=== PATIENT | female | born 1955 | race Hispanic/Latino ===

== ENCOUNTER 2016-12-07 12:34 | Observation (INO) | payer MEDICARE, OTHER ==
[2016-12-07 12:34] VITALS: BMI 27.9
[2016-12-07] MEDS ORDERED: Aspirin 325 mg EC Tablets PO STA (13:29)
--- NOTE | 2016-12-07 14:03 | RAD ---
PROCEDURE: CHEST RADIOGRAPH, 1 VIEW HISTORY: Left chest pain COMPARISON: None available. FINDINGS: LUNGS: Poor inspiration with low lung volumes, mild crowded bronchovascular markings and mild bibasilar atelectasis PLEURA: No pneumothorax or pleural fluid seen. CARDIOVASCULAR: Normal. OSSEOUS STRUCTURES: No significant abnormalities. VISUALIZED UPPER ABDOMEN: Normal. OTHER FINDINGS: None. IMPRESSION: Poor inspiration with low lung volumes, mild crowded bronchovascular markings and mild bibasilar atelectasis
[2016-12-07 14:21] LABS: BASO % 0.3 % (0.0-2.0); EOS % 0.2 % (0.0-4.0); HEMATOCRIT 44.4 % (34.0-47.0); LYMPH # 2.2 K/uL (1.0-4.3); LYMPH % 23.9 % (20.0-40.0); MEAN CORPUSCULAR HEMOGLOBIN 26.8 pg (27.0-31.0); MEAN CORPUSCULAR HGB CONC 32.3 g/dL (33.0-37.0); MEAN PLATELET VOLUME 9.1 fL (7.2-11.7); MONO # 0.6 K/uL (0.0-0.8); MONO % 6.7 % (0.0-10.0); RED CELL DISTRIBUTION WIDTH 15.2 % (11.5-14.5); WHITE BLOOD COUNT 9.4 K/uL (4.8-10.8)
[2016-12-07 14:28] LABS: PARTIAL THROMBOPLASTIN TIME 24 SECONDS (21-34)
--- NOTE | 2016-12-07 14:34 | C.PDOC ---
Time Seen by Provider: 12/07/16 13:17 Chief Complaint (Nursing): Chest Pain History Per: Patient Onset/Duration Of Symptoms: Days (2), Waxing/Waning Current Symptoms Are (Timing): Still Present Context: Other (Emotional stress?) Severity: Moderate Quality: "Pain" Associated Symptoms: Dyspnea Modifying Factors: Other Indicated Below Alleviating Factors: None Additional History Per: Prior Records Past Medical History Reviewed: Historical Data, Nursing Documentation, Vital Signs Vital Signs: Last Vital Signs Temp 98.4 F 12/07/16 13:00 Pulse 105 H 12/07/16 13:00 Resp 19 12/07/16 13:00 BP 127/90 12/07/16 13:00 Pulse Ox 98 12/07/16 14:34 - Medical History PMH: Anxiety, Depression, Diabetes, HTN, Hypercholesterolemia, Chronic Pain ( back pain) Surgical History: No Surg Hx Family History: States: Unknown Family Hx - Social History Hx Tobacco Use: No Hx Alcohol Use: No Hx Substance Use: No - Immunization History Hx Influenza Vaccination: Yes Hx Pneumococcal Vaccination: Yes Review Of Systems Except As Marked, All Systems Reviewed And Found Negative. Constitutional: Negative for: Fever, Weakness Cardiovascular: Positive for: Chest Pain Respiratory: Negative for: Hemoptysis Gastrointestinal: Negative for: Nausea, Vomiting, Abdominal Pain Genitourinary: Negative for: Dysuria Musculoskeletal: Positive for: Back Pain. Negative for: Neck Pain, Leg Pain Skin: Negative for: Rash Neurological: Negative for: Weakness, Numbness, Seizures, Altered Mental Status Physical Exam - Physical Exam Appears: Non-toxic, No Acute Distress Skin: Normal Color, Warm, Dry, No Rash Head: Atraumatic, Normacephalic Eye(s): bilateral: PERRL, EOMI Neck: Normal ROM, Supple Chest: Symmetrical, No Deformity Cardiovascular: Rhythm Regular Respiratory: Normal Breath Sounds, No Accessory Muscle Use Gastrointestinal/Abdominal: Soft, No Tenderness Back: No CVA Tenderness Extremity: Normal ROM, No Calf Tenderness Neurological/Psych: Oriented x3, Normal Motor, Normal Sensation ED Course And Treatment - Laboratory Results Result Diagrams: 12/07/16 14:10 12/07/16 14:45 Lab Interpretation: No Acute Changes ECG: Interpreted By Me, Viewed By Me ECG Rhythm: Sinus Tachycardia, Nonspecific Changes Rate From EC O2 Sat by Pulse Oximetry: 98 Pulse Ox Interpretation: Normal - Radiology CXR: Viewed By Me, Read By Radiologist CXR Interpretation: Yes: No Acute Disease Progress - Interventions Interventions:: Observation, Oxygen - Medications Administered Oral: Aspirin - Data Reviewed Data Reviewed: Lab, Diagnostic imaging, EKG, Old records - Patient Status Patient status: Partially improved - Continuity of Care Discussed patient case with:: Patient, Family-HIPPA compliant, ED Nurse, Covering for PMD Disposition Discussed With : Jarocho Neff Comment: He accepted pt on hospitalist service. Doctor Will See Patient In The: Hospital Counseled Patient/Family Regarding: Studies Performed, Diagnosis - Disposition Disposition: HOSPITALIZED Disposition Time: 15:58 Condition: FAIR - Clinical Impression Clinical Impression: Chest pain
[2016-12-07 15:18] LABS: CHLORIDE 98 mmol/L (98-107)
[2016-12-07 15:19] LABS: POTASSIUM 3.7 mmol/L (3.6-5.2); SODIUM 139 mmol/L (132-148)
[2016-12-07 15:21] LABS: GFR AFRICAN-AMERICAN > 60
[2016-12-07 15:22] LABS: ALB/GLOB RATIO 1.5 (1.0-2.1); ALKALINE PHOSPHATASE 85 U/L (38-126); ALT/SGPT 38 U/L (9-52); AST/SGOT 27 U/L (14-36); BILIRUBIN,TOTAL 0.5 mg/dL (0.2-1.3); BLOOD UREA NITROGEN 8 mg/dL (7-17); CALCIUM 9.2 mg/dl (8.6-10.4); CARBON DIOXIDE 33 mmol/L (22-30); GLUCOSE,RANDOM 96 mg/dL (65-105); TOTAL PROTEIN 6.9 g/dL (6.3-8.3)
--- NOTE | 2016-12-07 16:22 | CP.PCM.PN ---
Subjective - Date & Time of Evaluation Date of Evaluation: 12/07/16 Objective - Vital Signs/Intake and Output Vital Signs (last 24 hours): Temp Pulse Resp BP Pulse Ox 98.4 F 105 H 19 127/90 98 12/07/16 13:00 12/07/16 13:00 12/07/16 13:00 12/07/16 13:00 12/07/16 15:58 - Labs Labs: PT 11.1 SECONDS (9.7-12.2) 12/07/16 14:10 INR 1.0 12/07/16 14:10 APTT 24 SECONDS (21-34) 12/07/16 14:10
--- NOTE | 2016-12-07 16:31 | CP.PCM.HP ---
<Wyatt Carmen - Last Filed: 12/07/16 16:47> History of Present Illness - History of Present Illness History of Present Illness: cc: "chest pain" HPI: Patient is a 61 year old female with PMHx of diabetes, hypertension, hyperlipidemia, anxiety disorder and depression presenting to the ED complaining of chest pain that started 3 days ago. She says the chest pain has been getting progressively worse and it reached the point where she could not tolerate it, so she decided to go to the hospital. She says the pain is intermittent, lasting about 5-10 minutes, self resolves without any intervention , sharp stabbing starting from her left chest , radiating around her left breast and to her back. She says she has had chest pain in the past, and has attributed it to her anxiety, but this was more severe. She follows with Dr. Silas Crocker, last saw him sometime last year. She took a baby aspirin today with no relief. Patient also stated that as of November 23, she was evicted from her apartment and that it has caused a significant stress on her. PMD: Dr. Benson PMHx: As stated above PSHx: denies Allergies: Seroquel (rash) Fam hx: mother had MT in 40s, brother had MT (unknown Present on Admission - Present on Admission Any Indicators Present on Admission: No Review of Systems - Constitutional Constitutional: absent: Chills, Weight Loss, Weakness - EENT Eyes: absent: Blurred Vision, Change in Vision Nose/Mouth/Throat: absent: Nasal Congestion, Nasal Discharge - Cardiovascular Cardiovascular: Chest Pain, Palpitations. absent: Claudication, Irregular Heart Rhythm, Leg Edema, Pedal Edema - Musculoskeletal Musculoskeletal: absent: Back Pain, Neck Pain, Numbness - Integumentary Integumentary: absent: Skin Pain, Sores, Striae, Swelling - Neurological Neurological: absent: Abnormal Movements, Tremor, Weakness - Psychiatric Psychiatric: absent: Anxiety, Panic Attacks, Suicidal Ideation - Endocrine Endocrine: Palpitations. absent: Fatigue Past Patient History - Infectious Disease Hx of Infectious Diseases: None - Past Social History Smoking Status: Never Smoked - CARDIAC Hx Hypercholesterolemia: Yes Hx Hypertension: Yes - ENDOCRINE/METABOLIC Hx Diabetes Mellitus Type 2: Yes - PSYCHIATRIC Hx Anxiety: Yes Hx Depression: Yes Hx Substance Use: No Meds Allergies/Adverse Reactions: Allergies Allergy/AdvReac Type Severity Reaction Status Date / Time No Known Allergies Allergy Verified 12/07/16 12:46 Physical Exam - Constitutional Appears: Non-toxic, No Acute Distress - Head Exam Head Exam: ATRAUMATIC, NORMAL INSPECTION, NORMOCEPHALIC - Eye Exam Pupil Exam: NORMAL ACCOMODATION, PERRL - ENT Exam ENT Exam: Mucous Membranes Moist - Respiratory Exam Respiratory Exam: Clear to Auscultation Bilateral, NORMAL BREATHING PATTERN. absent: Prolonged Expiratory Phase, Rales, Rhonchi, Wheezes - Cardiovascular Exam Cardiovascular Exam: REGULAR RHYTHM, +S1, +S2 - GI/Abdominal Exam GI & Abdominal Exam: Normal Bowel Sounds, Soft. absent: Firm, Guarding, Hernia , Hyperactive Bowel Sounds, Tenderness - Extremities Exam Extremities exam: Positive for: normal capillary refill, pedal pulses present - Neurological Exam Neurological exam: Alert, CN II-XII Intact, Oriented x3 - Psychiatric Exam Psychiatric exam: Normal Affect, Normal Mood - Skin Skin Exam: Dry, Intact, Normal Color, Warm Results - Vital Signs Recent Vital Signs: Last Vital Signs Temp 98.4 F 12/07/16 13:00 Pulse 105 H 12/07/16 13:00 Resp 19 12/07/16 13:00 BP 127/90 12/07/16 13:00 Pulse Ox 98 12/07/16 15:58 - Labs Result Diagrams: 12/07/16 14:10 12/07/16 14:45 Assessment & Plan (1) Chest pain Status: Acute Comment: Consult cardio- Dr. Crocker. AV negative x 1. EKG: Sinus tach- 109 bpm, moderate criteria for LVH, nonspecific t wave abnormalities. f/u ROMIs x 2. f/u EKGs x2. f/u HgbA1c, TSH, FLP (2) Hypertension Status: Acute Comment: Continue Losartan 50mg PO Daily. Continue HCTZ 12.mg PO Daily. Continue Bystolic 10mg PO Daily (3) Diabetes Status: Acute Comment: accuchecks. RISS. Heart healthy, Mod CHO diet (4) Hyperlipidemia Status: Acute Comment: Continue Crestor 10mg PO HS (5) Anxiety Status: Acute Comment: Continue Xanax 1mg PO Q12h PRN (6) Depression Status: Acute Comment: Continue Abilify 5mg PO HS (7) Herniated intervertebral disc Status: Acute Comment: Continue Percocet 5/325mg PO Q6h PRN for pain (8) Prophylactic measure Status: Acute Comment: Protonix 40mg PO Daily. SCDs. Heparin 5000U SC Q8h <Jarocho Neff - Last Filed: 12/07/16 18:13> Results - Vital Signs Recent Vital Signs: Last Vital Signs Temp 98.4 F 12/07/16 13:00 Pulse 93 H 12/07/16 16:45 Resp 23 12/07/16 16:45 BP 140/92 H 12/07/16 16:45 Pulse Ox 98 12/07/16 16:45 - Labs Result Diagrams: 12/07/16 14:10 12/07/16 14:45 Attending/Attestation - Attestation I have personally seen and examined this patient.: Yes I have fully participated in the care of the patient.: Yes I have reviewed all pertinent clinical information: Yes Notes (Text): 12/07/16 18:11 Medical Attending: Patient was seen and examined by me. Agree with the above note by the resident. The patient did seem to have chest pain with palpation of the epigastric and substernal area. It seemed reproducible on exam. We will check additional cardiac enzymes as well as an echo. Will also let her recruit instructor aware as well thank you Jarocho Neff
[2016-12-07] MEDS ORDERED: Oxycodone/Acetaminophen 5/325 mg Tab PO PRN (17:04)
[2016-12-07] MEDS: LIPASE/PROTEASE/AMYLASE 4,200 U ECC PO SCH (19:03)
[2016-12-07] MEDS: (Novolin R) Insulin Human Regular 100 units/ml vial SC SCH (22:12)
[2016-12-08 02:58] LABS: CHLORIDE 99 mmol/L (98-107)
[2016-12-08 02:59] LABS: POTASSIUM 3.4 mmol/L (3.6-5.2); SODIUM 138 mmol/L (132-148)
[2016-12-08 03:01] LABS: ALB/GLOB RATIO 1.3 (1.0-2.1); AST/SGOT 22 U/L (14-36); BILIRUBIN,TOTAL 0.7 mg/dL (0.2-1.3); BLOOD UREA NITROGEN 10 mg/dL (7-17); CARBON DIOXIDE 32 mmol/L (22-30); CHOLESTEROL 149 mg/dL (0-199); GFR AFRICAN-AMERICAN > 60
[2016-12-08 03:02] LABS: ALKALINE PHOSPHATASE 59 U/L (38-126); ALT/SGPT 25 U/L (9-52); CALCIUM 8.7 mg/dl (8.6-10.4); GLUCOSE,RANDOM 95 mg/dL (65-105)
[2016-12-08 03:03] LABS: BASO % 0.3 % (0.0-2.0); EOS # 0.1 K/uL (0.0-0.7); EOS % 0.8 % (0.0-4.0); HEMATOCRIT 40.6 % (34.0-47.0); LYMPH # 3.5 K/uL (1.0-4.3); LYMPH % 51.3 % (20.0-40.0); MEAN CELL VOLUME 82.4 fL (81.0-99.0); MEAN CORPUSCULAR HEMOGLOBIN 26.9 pg (27.0-31.0); MEAN CORPUSCULAR HGB CONC 32.7 g/dL (33.0-37.0); MEAN PLATELET VOLUME 9.2 fL (7.2-11.7); MONO # 0.5 K/uL (0.0-0.8); MONO % 7.6 % (0.0-10.0); WHITE BLOOD COUNT 6.9 K/uL (4.8-10.8)
[2016-12-08 03:31] LABS: THYROID STIMULATING HORMONE 1.99 mIU/L (0.46-4.68)
[2016-12-08] MEDS ORDERED: Potassium Chloride 20 mEq ER Tab PO STA (04:53)
[2016-12-08] MEDS: (Novolin R) Insulin Human Regular 100 units/ml vial SC SCH ×4 (08:17→22:12)
[2016-12-08] MEDS ORDERED: Midazolam 2 MG/2 ML VIAL ONE (10:52)
--- NOTE | 2016-12-08 11:59 | CP.PCM.CON ---
History of Present Illness - History of Present Illness History of Present Illness: I was asked to see patient by Dr. Neff. Patient is a 61 year old female with PMH HTN, hypercholesterolemia, DM who presents with unstable angina. The patient describes a pressure like sensation on the middle of the chest which was associated with radiation and dyspnea. Symptoms began 3 days prior to her visit, and have become progressive. The patient states her pain is substernal. She presented to the hospital due to the crescendo nature of her symptoms. Review of Systems - Constitutional Constitutional: absent: As Per HPI, Anorexia, Chills, Daytime Sleepiness, Excessive Sweating, Fatigue, Fever, Frequent Falls, Headache, Increased Appetite , Lethargy, Malaise, Night Sweats, Snoring, Sleep Apnea, Weight Gain, Weight Loss, Weakness, Other - EENT Eyes: absent: As Per HPI, Blind Spots, Blurred Vision, Change in Vision, Decreased Night Vision, Diplopia, Discharge, Dry Eye, Exophthalmos, Floaters, Irritation, Itchy Eyes, Loss of Peripheral Vision, Pain, Photophobia, Requires Corrective Lenses, Sees Flashes, Spots in Vision, Tunnel Vision, Other Visual Disturbances, Loss of Vision, Other Ears: absent: As Per HPI, Decreased Hearing, Ear Discharge, Ear Pain, Tinnitus, Abnormal Hearing, Disequilibrium, Dizziness, Other Nose/Mouth/Throat: absent: As Per HPI, Epistaxis, Nasal Congestion, Nasal Discharge, Nasal Obstruction, Nasal Trauma, Nose Pain, Post Nasal Drip, Sinus Pain, Sinus Pressure, Bleeding Gums, Change in Voice, Dental Pain, Dry Mouth, Dysphagia, Halitosis, Hoarsness, Lip Swelling, Mouth Lesions, Mouth Pain, Odynophagia, Sore Throat, Throat Swelling, Tongue Swelling, Facial Pain, Neck Pain, Neck Mass, Other - Cardiovascular Cardiovascular: Chest Pain, Dyspnea - Respiratory Respiratory: Dyspnea - Gastrointestinal Gastrointestinal: absent: As Per HPI, Abdominal Pain, Belching, Bloating, Change in Bowel Habits, Change in Stool Character, Coffee Ground Emesis, Constipation, Cramping, Diarrhea, Dyspepsia, Dysphagia, Early Satiety, Excessive Flatus, Fecal Incontinence, Heartburn, Hematemesis, Hematochezia, Loose Stools, Melena, Nausea, Odynophagia, Temesmus, Vomiting, Other - Genitourinary Genitourinary: absent: As Per HPI, Change in Urinary Stream, Difficulty Urinating, Dysuria, Flank Pain, Hematuria, Pyuria, Nocturia, Urinary Incontinence, Urinary Frequency, Urinary Hesitance, Urinary Urgency, Voiding Freq/Small Amts, Freq UTI, Hx Renal/Bladder Calculi, Hx /Renal Surgery, Bladder Distension, Other - Musculoskeletal Musculoskeletal: absent: As Per HPI, Abnormal Gait, Arthralgias, Atrophy, Back Pain, Deformity, Joint Swelling, Limited Range of Motion, Loss of Height, Muscle Cramps, Muscle Weakness, Myalgias, Neck Pain, Numbness, Radiating Pain into Limb, Stiffness, Tingling, Other - Integumentary Integumentary: absent: As Per HPI, Acne, Alopecia, Bleeding Lesions, Change in Hair, Change in Nails, Change in Pigmentation, Changing Lesions, Dry Skin, Erythema, Furuncle, Hirsutism, Lesions, New Lesions, Non-Healing Lesions, Photosensitivity, Pruritus, Rash, Skin Pain, Skin Ulcer, Sores, Striae, Swelling , Unusual Bruising, Wounds, Jaundice, Other - Neurological Neurological: absent: As Per HPI, Abnormal Gait, Abnormal Hearing, Abnormal Movements, Abnormal Speech, Behavioral Changes, Burning Sensations, Confusion, Convulsions, Disequilibrium, Dizziness, Numbness, Focal Weakness, Frequent Falls , Headaches, Lack of Coordination, Loss of Vision, Memory Loss, Paresthesias, Radicular Pain, Restless Legs, Sensory Deficit, Syncope, Tingling, Tremor, Vertigo, Weakness, Other Visual Disturbances, Other - Psychiatric Psychiatric: absent: As Per HPI, Abnormal Sleep Pattern, Anhedonia, Anxiety, Auditory Hallucinations, Behavioral Changes, Change in Appetite, Change in Libido, Confusion, Depression, Difficulty Concentrating, Hallucinations, Homicidal Ideation, Hopelessness, Irritability, Memory Loss, Mood Swings, Panic Attacks, Paranoia, Suicidal Ideation, Visual Hallucinations, Tactile Hallucinations, Other - Endocrine Endocrine: absent: As Per HPI, Change in Body Appearance, Change in Libido, Cold Intolorance, Deepening of Voice, Excessive Sweating, Fatigue, Flushing, Heat Intolorance, Increase in Ring/Shoe/Hat Size, Palpitations, Polydipsia, Polyphagia, Polyuria, Other - Hematologic/Lymphatic Hematologic: absent: As Per HPI, Easy Bleeding, Easy Bruising, Lymphadenopathy, Other Past Patient History - Infectious Disease Hx of Infectious Diseases: None - Past Medical History & Family History Past Medical History?: Yes - Past Social History Smoking Status: Never Smoked - CARDIAC Hx Hypercholesterolemia: Yes Hx Hypertension: Yes - PULMONARY Hx Respiratory Disorders: No - NEUROLOGICAL Hx Neurological Disorder: Yes HX Cerebrovascular Accident: Yes - HEENT Hx HEENT Problems: No - RENAL Hx Chronic Kidney Disease: No - ENDOCRINE/METABOLIC Hx Diabetes Mellitus Type 2: Yes - HEMATOLOGICAL/ONCOLOGICAL Hx Blood Disorders: No - INTEGUMENTARY Hx Dermatological Problems: No - MUSCULOSKELETAL/RHEUMATOLOGICAL Hx Musculoskeletal Disorders: No Hx Falls: No - GASTROINTESTINAL Hx Gastrointestinal Disorders: No - GENITOURINARY/GYNECOLOGICAL Hx Genitourinary Disorders: No - PSYCHIATRIC Hx Anxiety: Yes Hx Depression: Yes Hx Substance Use: No - SURGICAL HISTORY Hx Section: Yes - ANESTHESIA Hx Anesthesia: Yes Hx Anesthesia Reactions: No Hx Malignant Hyperthermia: No Meds Allergies/Adverse Reactions: Allergies Allergy/AdvReac Type Severity Reaction Status Date / Time quetiapine [From Seroquel] Allergy RASH Verified 12/08/16 10:08 - Medications Medications: Current Medications Alprazolam (Xanax) 1 mg PO Q12H PRN PRN Reason: Anxiety Last Admin: 12/07/16 21:35 Dose: 1 mg Aripiprazole (Abilify) 5 mg PO HS [facility] Last Admin: 12/07/16 21:33 Dose: 5 mg Heparin Sodium (Porcine) (Heparin) 5,000 units SC Q8 [facility] Last Admin: 12/08/16 05:26 Dose: 5,000 units Hydrochlorothiazide (Microzide) 12.5 mg PO DAILY [facility] Insulin Human Regular (Novolin R) 0 unit SC ACHS [facility] PRN Reason: Protocol Last Admin: 12/08/16 08:17 Dose: Not Given Losartan Potassium (Cozaar) 50 mg PO DAILY [facility] Nebivolol (Bystolic) 10 mg PO DAILY [facility] Oxycodone/Acetaminophen (Percocet 5/325 Mg Tab) 1 tab PO Q6H PRN PRN Reason: Pain, severe (8-10) Stop: 12/10/16 17:05 Last Admin: 12/07/16 20:55 Dose: 1 tab Pantoprazole Sodium (Protonix Ec Tab) 40 mg PO DAILY [facility] Rosuvastatin Calcium (Crestor) 10 mg PO HS [facility] Last Admin: 12/07/16 21:34 Dose: 10 mg Physical Exam - Constitutional Appears: Non-toxic - Head Exam Head Exam: NORMAL INSPECTION - Eye Exam Eye Exam: Normal appearance - ENT Exam ENT Exam: Mucous Membranes Moist - Neck Exam Neck exam: Positive for: Full Rom - Respiratory Exam Respiratory Exam: NORMAL BREATHING PATTERN - Cardiovascular Exam Cardiovascular Exam: REGULAR RHYTHM - GI/Abdominal Exam GI & Abdominal Exam: Normal Bowel Sounds - Rectal Exam Rectal Exam: Deferred - Extremities Exam Extremities exam: Positive for: full ROM - Back Exam Back exam: NORMAL INSPECTION - Neurological Exam Neurological exam: Alert, Oriented x3 - Psychiatric Exam Psychiatric exam: Normal Affect - Skin Skin Exam: Normal Color Results - Vital Signs Recent Vital Signs: Last Vital Signs Temp 97.6 F 12/08/16 08:20 Pulse 75 12/08/16 08:20 Resp 20 12/08/16 08:20 BP 119/71 12/08/16 08:20 Pulse Ox 94 L 12/08/16 08:20 - Labs Result Diagrams: 12/08/16 02:46 12/08/16 02:46 Labs: Laboratory Results - last 24 hr 12/07/16 12/07/16 12/07/16 18:08 21:40 22:01 WBC RBC Hgb Hct MCV MCH MCHC RDW Plt Count MPV Neut % (Auto) Lymph % (Auto) [place] % (Auto) Eos % (Auto) Baso % (Auto) Neut # Lymph # [place] # Eos # Baso # Sodium Potassium Chloride Carbon Dioxide Anion Gap BUN Creatinine Est GFR ( Amer) Est GFR (Non-Af Amer) POC Glucose (mg/dL) 120 H 88 Random Glucose Hemoglobin A1c Calcium Total Bilirubin AST ALT Alkaline Phosphatase Total Creatine Kinase 43 CK-MB (Mass) 0.52 Troponin I, Quant < 0.0120 Total Protein Albumin Globulin Albumin/Globulin Ratio Triglycerides Cholesterol LDL Cholesterol Direct HDL Cholesterol TSH 3rd Generation 12/08/16 12/08/16 12/08/16 02:46 02:46 02:46 WBC 6.9 RBC 4.92 Hgb 13.3 Hct 40.6 MCV 82.4 MCH 26.9 L MCHC 32.7 L RDW 15.0 H Plt Count 134 MPV 9.2 Neut % (Auto) 40.0 L Lymph % (Auto) 51.3 H [place] % (Auto) 7.6 Eos % (Auto) 0.8 Baso % (Auto) 0.3 Neut # 2.7 Lymph # 3.5 [place] # 0.5 Eos # 0.1 Baso # 0.0 Sodium 138 Potassium 3.4 L Chloride 99 Carbon Dioxide 32 H Anion Gap 10 BUN 10 Creatinine 0.6 L Est GFR ( Amer) > 60 Est GFR (Non-Af Amer) > 60 POC Glucose (mg/dL) Random Glucose 95 Hemoglobin A1c 6.6 H Calcium 8.7 Total Bilirubin 0.7 AST 22 ALT 25 Alkaline Phosphatase 59 Total Creatine Kinase 40 CK-MB (Mass) 0.49 Troponin I, Quant < 0.0120 Total Protein 6.0 L Albumin 3.5 Globulin 2.6 Albumin/Globulin Ratio 1.3 Triglycerides 188 H Cholesterol 149 LDL Cholesterol Direct 58 HDL Cholesterol 66 TSH 3rd Generation 1.99 12/08/16 06:34 WBC RBC Hgb Hct MCV MCH MCHC RDW Plt Count MPV Neut % (Auto) Lymph % (Auto) [place] % (Auto) Eos % (Auto) Baso % (Auto) Neut # Lymph # [place] # Eos # Baso # Sodium Potassium Chloride Carbon Dioxide Anion Gap BUN Creatinine Est GFR ( Amer) Est GFR (Non-Af Amer) POC Glucose (mg/dL) 112 H Random Glucose Hemoglobin A1c Calcium Total Bilirubin AST ALT Alkaline Phosphatase Total Creatine Kinase CK-MB (Mass) Troponin I, Quant Total Protein Albumin Globulin Albumin/Globulin Ratio Triglycerides Cholesterol LDL Cholesterol Direct HDL Cholesterol TSH 3rd Generation - EKG Data EKG Interpreted by: Myself EKG shows normal: Sinus rhythm Assessment & Plan (1) Unstable angina Assessment and Plan: patient has signficant risk factors for CAD. will schedule cardiac cath. I discussed risks and benefits with the patient. Status: Acute (2) Diabetes Assessment and Plan: risk factor for CAD Status: Acute (3) Hyperlipidemia Assessment and Plan: recommend statin therapy Status: Acute (4) Hypertension Assessment and Plan: blood pressure control Status: Acute
[2016-12-08] MEDS ORDERED: Sodium Chloride 0.9% 500 ML IV SCH (12:04)
--- NOTE | 2016-12-08 12:04 | CP.PCM.PN ---
Subjective - Date & Time of Evaluation Date of Evaluation: 12/08/16 Time of Evaluation: 12:00 - Subjective Subjective: cardiac cath performed. No signifcant CAD. Normal left ventricular function. Patient is stable for discharge from a cardiac standpoint. Objective - Vital Signs/Intake and Output Vital Signs (last 24 hours): Temp Pulse Resp BP Pulse Ox 97.6 F 75 20 119/71 94 L 12/08/16 08:20 12/08/16 08:20 12/08/16 08:20 12/08/16 08:20 12/08/16 08:20 Intake and Output: 12/08/16 12/08/16 06:59 18:59 Intake Total 110 Balance 110 - Medications Medications: Current Medications Alprazolam (Xanax) 1 mg PO Q12H PRN PRN Reason: Anxiety Last Admin: 12/07/16 21:35 Dose: 1 mg Aripiprazole (Abilify) 5 mg PO HS [facility] Last Admin: 12/07/16 21:33 Dose: 5 mg Heparin Sodium (Porcine) (Heparin) 5,000 units SC Q8 [facility] Last Admin: 12/08/16 05:26 Dose: 5,000 units Hydrochlorothiazide (Microzide) 12.5 mg PO DAILY [facility] Insulin Human Regular (Novolin R) 0 unit SC ACHS [facility] PRN Reason: Protocol Last Admin: 12/08/16 08:17 Dose: Not Given Losartan Potassium (Cozaar) 50 mg PO DAILY [facility] Nebivolol (Bystolic) 10 mg PO DAILY [facility] Oxycodone/Acetaminophen (Percocet 5/325 Mg Tab) 1 tab PO Q6H PRN PRN Reason: Pain, severe (8-10) Stop: 12/10/16 17:05 Last Admin: 12/07/16 20:55 Dose: 1 tab Pantoprazole Sodium (Protonix Ec Tab) 40 mg PO DAILY [facility] Rosuvastatin Calcium (Crestor) 10 mg PO HS [facility] Last Admin: 12/07/16 21:34 Dose: 10 mg - Labs Labs: 12/08/16 02:46 12/08/16 02:46 PT 11.1 SECONDS (9.7-12.2) 12/07/16 14:10 INR 1.0 12/07/16 14:10 APTT 24 SECONDS (21-34) 12/07/16 14:10 Assessment and Plan (1) Unstable angina Status: Acute (2) Diabetes Status: Acute (3) Hyperlipidemia Status: Acute (4) Hypertension Status: Acute
[2016-12-08] MEDS: LIPASE/PROTEASE/AMYLASE 4,200 U ECC PO SCH ×3 (12:29→19:08)
[2016-12-08 12:44] VITALS: O2SAT 97
[2016-12-08] MEDS: Pantoprazole 40 mg EC Tab PO SCH (13:10)
--- NOTE | 2016-12-08 13:23 | CARDCATH ---
PROCEDURE DATE: 12/08/2016 PERFORMING PHYSICIAN: Silas Crocker MD PROCEDURE PERFORMED: Left heart catheterization, coronary angiography, left ventriculography. INDICATIONS: Unstable angina. COMPLICATIONS: None. HISTORY: The patient is a 61-year-old female with a past medical history of hypertension, hyperchole sterolemia, and diabetes mellitus who presents with substernal chest pressure. Symptoms were intermi ttent and progressive. She presented to [facility] for further management. Due to the crescend o nature of her symptoms, cardiac catheterization was performed. DESCRIPTION OF PROCEDURE: Informed consent was obtained and the right groin was anesthetized with 2% lidocaine solution. Coronary angiography and left ventriculography were then performed. All cathet ers were then removed. Manual pressure was applied to achieve hemostasis. FINDINGS: HEMODYNAMICS: There is no gradient across the aortic valve and left ventricular end-diastolic pressu re is normal. CORONARIES: LEFT MAIN: Normal. LEFT ANTERIOR DESCENDING ARTERY: 20% stenosis proximally. The distal vessel is small in caliber. LEFT CIRCUMFLEX ARTERY: No significant atherosclerosis. RIGHT CORONARY ARTERY: Arises from the right sinus of Valsalva. This is a left dominant circulation . This is a very small caliber vessel with no significant atherosclerosis. LEFT VENTRICLE: Normal left ventricular systolic function. Left ventricular ejection fraction is 55 %. There is no mitral regurgitation or aortic stenosis. CONCLUSIONS: Small caliber distal left anterior descending artery and right coronary artery, otherwi se no significant obstructive coronary disease, normal left ventricular function. PLAN: Medical therapy. Silas Crocker MD cc: [id number] TT: 12/08/2016 13:23:33 tn
--- NOTE | 2016-12-08 16:58 | CARD ---
APPROVED REPORT EXAM: Two-dimensional and M-mode echocardiogram with Doppler and color Doppler. Other Information Quality : AverageRhythm : NSR INDICATION Chest Pain M-Mode DIMENSIONS RVDd1.11 (2.1-3.2cm)Left Atrium (MM)3.57 (2.5-4.0cm) IVSd0.62 (0.7-1.1cm)Aortic Root2.60 (2.2-3.7cm) LVDd4.58 (4.0-5.6cm)Aortic Cusp Exc.1.80 (1.5-2.0cm) PWd1.15 (0.7-1.1cm)FS (%) 36 % LVDs2.95 (2.0-3.8cm)LVEF (%)65 (>50%) Aortic Valve AoV Peak Azvbckhz170.6cm/Isidro Peak GR.7mmHg Mitral Valve MV E Twfuykds06.5cm/sMV A Pziqkons89.8cm/sE/A ratio0.7 TDI E/Lateral E'0.0E/Medial E'0.0 Tricuspid Valve TR Peak Gkdxoazh462eb/sTR Peak Gr.[id number] LEFT VENTRICLE The left ventricle is normal size. There is normal left ventricular wall thickness. The left ventricular function is normal. The left ventricular ejection fraction is within the normal range. No regional wall motion abnormalities noted. Transmitral Doppler flow pattern is Grade I-abnormal relaxation pattern. No left ventricle thrombus noted on this study. There is no ventricular septal defect visualized. There is no left ventricular aneurysm. There is no mass noted in the left ventricle. RIGHT VENTRICLE The right ventricle is normal size. There is normal right ventricular wall thickness. The right ventricular systolic function is normal. ATRIA The left atrium size is normal. The right atrium size is normal. The interatrial septum is intact with no evidence for an atrial septal defect. AORTIC VALVE The aortic valve is normal in structure and function. No aortic regurgitation is present. There is no aortic valvular stenosis. There is no aortic valvular vegetation. MITRAL VALVE The mitral valve is normal in structure and function. There is no evidence of mitral valve prolapse. There is no mitral valve stenosis. There is no mitral valve regurgitation noted. TRICUSPID VALVE The tricuspid valve is normal in structure and function. There is mild tricuspid valve regurgitation noted. There is no tricuspid valve prolapse or vegetation. There is no tricuspid valve stenosis. PULMONIC VALVE The pulmonary valve is normal in structure and function. There is no pulmonic valvular regurgitation. There is no pulmonic valvular stenosis. GREAT VESSELS The aortic root is normal in size. The ascending aorta is normal in size. The pulmonary artery is normal. The IVC is normal in size and collapses >50% with inspiration. PERICARDIAL EFFUSION The pericardium appears normal. There is no pleural effusion. <Conclusion> Normal LV EF, mild tricuspid regurgitation. Type I diastolic dysfunction.
--- NOTE | 2016-12-08 17:53 | CP.PCM.PN ---
<Andreas Marcelino - Last Filed: 12/08/16 17:50> Subjective - Date & Time of Evaluation Date of Evaluation: 12/08/16 Time of Evaluation: 09:00 - Subjective Subjective: Hospitalist Note- Dr. Neff's service Patient seen and evaluated at bedside. She reports her chest pain has improved but her chest wall is tender along the sternum and left breast. She denies any palpitations, nausea, vomiting, fever, or chills. She is scheduled for a cardiac cath this morning. No adverse events overnight per nursing. Objective - Vital Signs/Intake and Output Vital Signs (last 24 hours): Temp Pulse Resp BP Pulse Ox 97.3 F L 73 18 110/76 97 12/08/16 16:00 12/08/16 16:00 12/08/16 16:00 12/08/16 16:00 12/08/16 16:00 Intake and Output: 12/08/16 12/08/16 06:59 18:59 Intake Total 110 Balance 110 - Medications Medications: Current Medications Alprazolam (Xanax) 1 mg PO Q12H PRN PRN Reason: Anxiety Last Admin: 12/07/16 21:35 Dose: 1 mg Aripiprazole (Abilify) 5 mg PO HS MAISHA Last Admin: 12/07/16 21:33 Dose: 5 mg Heparin Sodium (Porcine) (Heparin) 5,000 units SC Q8 [facility] Last Admin: 12/08/16 13:11 Dose: 5,000 units Hydrochlorothiazide (Microzide) 12.5 mg PO DAILY [facility] Last Admin: 12/08/16 12:29 Dose: Not Given Insulin Human Regular (Novolin R) 0 unit SC ACHS [facility] PRN Reason: Protocol Last Admin: 12/08/16 13:09 Dose: Not Given Losartan Potassium (Cozaar) 50 mg PO DAILY [facility] Last Admin: 12/08/16 12:29 Dose: Not Given Nebivolol (Bystolic) 10 mg PO DAILY [facility] Last Admin: 12/08/16 12:29 Dose: Not Given Oxycodone/Acetaminophen (Percocet 5/325 Mg Tab) 1 tab PO Q6H PRN PRN Reason: Pain, severe (8-10) Stop: 12/10/16 17:05 Last Admin: 12/07/16 20:55 Dose: 1 tab Pantoprazole Sodium (Protonix Ec Tab) 40 mg PO DAILY [facility] Last Admin: 12/08/16 13:10 Dose: 40 mg Rosuvastatin Calcium (Crestor) 10 mg PO HS [facility] Last Admin: 12/07/16 21:34 Dose: 10 mg - Labs Labs: 12/08/16 02:46 12/08/16 02:46 PT 11.1 SECONDS (9.7-12.2) 12/07/16 14:10 INR 1.0 12/07/16 14:10 APTT 24 SECONDS (21-34) 12/07/16 14:10 - Constitutional Appears: Non-toxic, No Acute Distress - Head Exam Head Exam: ATRAUMATIC, NORMOCEPHALIC - Eye Exam Eye Exam: EOMI, Normal appearance, PERRL Pupil Exam: NORMAL ACCOMODATION - ENT Exam ENT Exam: Mucous Membranes Moist, Normal Oropharynx - Neck Exam Neck Exam: Normal Inspection - Respiratory Exam Respiratory Exam: Chest Wall Tenderness, Clear to Ausculation Bilateral, NORMAL BREATHING PATTERN. absent: Rales, Rhonchi, Wheezes - Cardiovascular Exam Cardiovascular Exam: REGULAR RHYTHM, +S1, +S2. absent: Gallop, Rubs, Murmur - GI/Abdominal Exam GI & Abdominal Exam: Soft, Normal Bowel Sounds. absent: Tenderness - Extremities Exam Extremities Exam: Normal Capillary Refill, Normal Inspection, Pedal Edema (+1 bilateral lowe ext). absent: Tenderness - Neurological Exam Neurological Exam: Alert, Awake, CN II-XII Intact, Oriented x3 - Psychiatric Exam Psychiatric exam: Depressed - Skin Skin Exam: Dry, Intact, Normal Color, Warm Assessment and Plan - Assessment and Plan (Free Text) Plan: Chest pain * Consult cardio- Dr. Crocker, help appreciated * EKG: Sinus tach- 109 bpm, moderate criteria for LVH, nonspecific t wave abnormalities. * Repeat EKG showed no interval change * Cardiac enzymes negative x3 * Echo 12/08/16- normal LVEF, mild tricuspid regurg, type 1 diastolic dysfunction. * TSH snl * Lipid panel showed elevated triglycerides-188, chol-149, LDL-58, HDL-66 * scheduled for cardiac cath this AM, f/u results * motrin 600mg Q6H PRN pain HTN * BP wnl today * Continue Losartan 50mg PO Daily. * Continue HCTZ 12.mg PO Daily. * Continue Bystolic 10mg PO Daily DM * Hgb A1C 6.6 * accuchecks. * RISS. * Heart healthy, Mod CHO diet * advised on better diet control and regular exercise HLD * Lipid panel showed elevated triglycerides-188, chol-149, LDL-58, HDL-66 * Continue Crestor 10mg PO HS Anxiety * Continue Xanax 1mg PO Q12h PRN Depression * Continue Abilify 5mg PO HS Herniated Vertebral Disc * Continue Percocet 5/325mg PO Q6h PRN for pain PPX: * Protonix 40mg PO Daily. SCDs. Heparin 5000U SC Q8h Assessment and plan discussed with attending physician. <Jarocho Neff H - Last Filed: 12/08/16 18:15> Objective - Vital Signs/Intake and Output Vital Signs (last 24 hours): Temp Pulse Resp BP Pulse Ox 97.3 F L 73 18 110/76 97 12/08/16 16:00 12/08/16 16:00 12/08/16 16:00 12/08/16 16:00 12/08/16 16:00 Intake and Output: 12/08/16 12/08/16 06:59 18:59 Intake Total 110 Balance 110 - Medications Medications: Current Medications Alprazolam (Xanax) 1 mg PO Q12H PRN PRN Reason: Anxiety Last Admin: 12/07/16 21:35 Dose: 1 mg Aripiprazole (Abilify) 5 mg PO HS [facility] Last Admin: 12/07/16 21:33 Dose: 5 mg Heparin Sodium (Porcine) (Heparin) 5,000 units SC Q8 [facility] Last Admin: 12/08/16 13:11 Dose: 5,000 units Hydrochlorothiazide (Microzide) 12.5 mg PO DAILY [facility] Last Admin: 12/08/16 12:29 Dose: Not Given Ibuprofen (Motrin Tab) 600 mg PO Q6 PRN PRN Reason: Pain, Mild (1-3) Insulin Human Regular (Novolin R) 0 unit SC ACHS [facility] PRN Reason: Protocol Last Admin: 12/08/16 18:12 Dose: Not Given Losartan Potassium (Cozaar) 50 mg PO DAILY [facility] Last Admin: 12/08/16 12:29 Dose: Not Given Nebivolol (Bystolic) 10 mg PO DAILY [facility] Last Admin: 12/08/16 12:29 Dose: Not Given Oxycodone/Acetaminophen (Percocet 5/325 Mg Tab) 1 tab PO Q6H PRN PRN Reason: Pain, severe (8-10) Stop: 12/10/16 17:05 Last Admin: 12/07/16 20:55 Dose: 1 tab Pantoprazole Sodium (Protonix Ec Tab) 40 mg PO DAILY [facility] Last Admin: 12/08/16 13:10 Dose: 40 mg Rosuvastatin Calcium (Crestor) 10 mg PO HS [facility] Last Admin: 12/07/16 21:34 Dose: 10 mg - Labs Labs: 12/08/16 02:46 12/08/16 02:46 PT 11.1 SECONDS (9.7-12.2) 12/07/16 14:10 INR 1.0 12/07/16 14:10 APTT 24 SECONDS (21-34) 12/07/16 14:10 Attending/Attestation - Attestation I have personally seen and examined this patient.: Yes I have fully participated in the care of the patient.: Yes I have reviewed all pertinent clinical information, including history, physical exam and plan: Yes Notes (Text): Medical Attending: Patient was seen and examined by me. Agree with the above note by the resident. The patient is s/p cardiac cath, the results of which were not ready yet when we had seen her. She reported no chest pain, breathing was ok as well, denied palpitations. Later in the day cardiology has documented that there was no signifigant CAD found, and that the patient can be discharged soon. Jarocho Neff 12/08/16 18:15
--- NOTE | 2016-12-08 18:25 | CARD ---
APPROVED REPORT EKG Measurement Heart [id number] [place] [id number] <Conclusion> Normal sinus rhythm Moderate voltage criteria for LVH, may be normal variant Nonspecific T wave abnormality Abnormal ECG
--- NOTE | 2016-12-08 18:36 | CARD ---
APPROVED REPORT EKG Measurement Heart [id number] <Conclusion> Sinus tachycardia Moderate voltage criteria for LVH, may be normal variant Nonspecific T wave abnormality Abnormal ECG
[2016-12-09 04:38] VITALS: RESP 20
[2016-12-09] MEDS: (Novolin R) Insulin Human Regular 100 units/ml vial SC SCH ×2 (07:47→11:46)
[2016-12-09 08:21] LABS: BASO % 0.2 % (0.0-2.0); EOS # 0.1 K/uL (0.0-0.7); EOS % 1.1 % (0.0-4.0); HEMATOCRIT 40.2 % (34.0-47.0); LYMPH # 2.1 K/uL (1.0-4.3); LYMPH % 32.5 % (20.0-40.0); MEAN CELL VOLUME 84.2 fL (81.0-99.0); MEAN CORPUSCULAR HEMOGLOBIN 26.7 pg (27.0-31.0); MEAN CORPUSCULAR HGB CONC 31.8 g/dL (33.0-37.0); MEAN PLATELET VOLUME 9.3 fL (7.2-11.7); MONO # 0.4 K/uL (0.0-0.8); MONO % 6.4 % (0.0-10.0); RED CELL DISTRIBUTION WIDTH 14.8 % (11.5-14.5); WHITE BLOOD COUNT 6.4 K/uL (4.8-10.8)
[2016-12-09 08:29] LABS: CHLORIDE 104 mmol/L (98-107); POTASSIUM 4.3 mmol/L (3.6-5.2); SODIUM 140 mmol/L (132-148)
[2016-12-09 08:31] LABS: GFR AFRICAN-AMERICAN > 60
[2016-12-09 08:32] LABS: ALB/GLOB RATIO 1.3 (1.0-2.1); ALKALINE PHOSPHATASE 75 U/L (38-126); ALT/SGPT 26 U/L (9-52); AST/SGOT 19 U/L (14-36); BILIRUBIN,TOTAL 0.5 mg/dL (0.2-1.3); BLOOD UREA NITROGEN 14 mg/dL (7-17); CARBON DIOXIDE 29 mmol/L (22-30); GLUCOSE,RANDOM 114 mg/dL (65-105); TOTAL PROTEIN 5.7 g/dL (6.3-8.3)
[2016-12-09 08:33] LABS: CALCIUM 8.6 mg/dl (8.6-10.4)
[2016-12-09 09:11] VITALS: BP 141/85; PULSE 94; TEMP 98
[2016-12-09] MEDS: LIPASE/PROTEASE/AMYLASE 4,200 U ECC PO SCH (09:16)
[2016-12-09] MEDS: Pantoprazole 40 mg EC Tab PO SCH (09:17)
--- NOTE | 2016-12-09 11:30 | CP.PCM.DIS ---
<Andreas Marcelino - Last Filed: 12/09/16 17:34> Provider - Provider Date of Admission: 12/07/16 15:58 Attending physician: Jarocho Neff DO Consults: Dr. Silas Crocker Time Spent in preparation of Discharge (in minutes): 35 Hospital Course - Lab Results Lab Results: Most Recent Lab Values WBC 6.4 K/uL (4.8-10.8) 12/09/16 08:08 RBC 4.77 Mil/uL (3.80-5.20) 12/09/16 08:08 Hgb 12.8 g/dL (11.0-16.0) 12/09/16 08:08 Hct 40.2 % (34.0-47.0) 12/09/16 08:08 MCV 84.2 fL (81.0-99.0) 12/09/16 08:08 MCH 26.7 pg (27.0-31.0) L 12/09/16 08:08 MCHC 31.8 g/dL (33.0-37.0) L 12/09/16 08:08 RDW 14.8 % (11.5-14.5) H 12/09/16 08:08 Plt Count 124 K/uL (130-400) L 12/09/16 08:08 MPV 9.3 fL (7.2-11.7) 12/09/16 08:08 Neut % (Auto) 59.8 % (50.0-75.0) 12/09/16 08:08 Lymph % (Auto) 32.5 % (20.0-40.0) 12/09/16 08:08 Gates % (Auto) 6.4 % (0.0-10.0) 12/09/16 08:08 Eos % (Auto) 1.1 % (0.0-4.0) 12/09/16 08:08 Baso % (Auto) 0.2 % (0.0-2.0) 12/09/16 08:08 Neut # 3.8 K/uL (1.8-7.0) 12/09/16 08:08 Lymph # 2.1 K/uL (1.0-4.3) 12/09/16 08:08 Gates # 0.4 K/uL (0.0-0.8) 12/09/16 08:08 Eos # 0.1 K/uL (0.0-0.7) 12/09/16 08:08 Baso # 0.0 K/uL (0.0-0.2) 12/09/16 08:08 PT 11.1 SECONDS (9.7-12.2) 12/07/16 14:10 INR 1.0 12/07/16 14:10 APTT 24 SECONDS (21-34) 12/07/16 14:10 D-Dimer, Quantitative < 200 ng/mlDDU (0-243) 12/07/16 14:10 Sodium 140 mmol/L (132-148) 12/09/16 08:08 Potassium 4.3 mmol/L (3.6-5.2) 12/09/16 08:08 Chloride 104 mmol/L (98-107) 12/09/16 08:08 Carbon Dioxide 29 mmol/L (22-30) 12/09/16 08:08 Anion Gap 11 (10-20) 12/09/16 08:08 BUN 14 mg/dL (7-17) 12/09/16 08:08 Creatinine 0.6 MG/DL (0.7-1.2) L 12/09/16 08:08 Est GFR ( Amer) > 60 12/09/16 08:08 Est GFR (Non-Af Amer) > 60 12/09/16 08:08 POC Glucose (mg/dL) 133 mg/dL (65-110) H 12/09/16 11:09 Random Glucose 114 mg/dL (65-105) H 12/09/16 08:08 Hemoglobin A1c 6.6 % (4.2-6.5) H 12/08/16 02:46 Calcium 8.6 mg/dl (8.6-10.4) 12/09/16 08:08 Total Bilirubin 0.5 mg/dL (0.2-1.3) 12/09/16 08:08 AST 19 U/L (14-36) 12/09/16 08:08 ALT 26 U/L (9-52) 12/09/16 08:08 Alkaline Phosphatase 75 U/L (38-126) 12/09/16 08:08 Total Creatine Kinase 40 U/L (30-135) 12/08/16 02:46 CK-MB (Mass) 0.49 ng/mL (0.0-3.38) 12/08/16 02:46 Troponin I, Quant < 0.0120 ng/mL (0.00-0.120) 12/08/16 02:46 NT-Pro-B Natriuret Pep 14.3 pg/mL (0-900) 12/07/16 14:45 Total Protein 5.7 g/dL (6.3-8.3) L 12/09/16 08:08 Albumin 3.2 g/dL (3.5-5.0) L 12/09/16 08:08 Globulin 2.5 gm/dL (2.2-3.9) 12/09/16 08:08 Albumin/Globulin Ratio 1.3 (1.0-2.1) 12/09/16 08:08 Triglycerides 188 mg/dL (0-149) H 12/08/16 02:46 Cholesterol 149 mg/dL (0-199) 12/08/16 02:46 LDL Cholesterol Direct 58 mg/dL (0-129) 12/08/16 02:46 HDL Cholesterol 66 mg/dL (30-70) 12/08/16 02:46 TSH 3rd Generation 1.99 mIU/L (0.46-4.68) 12/08/16 02:46 - Hospital Course Hospital Course: cc: "chest pain" HPI: Patient is a 61 year old female with PMHx of diabetes, hypertension, hyperlipidemia, anxiety disorder and depression presenting to the ED complaining of chest pain that started 3 days ago. She says the chest pain has been getting progressively worse and it reached the point where she could not tolerate it, so she decided to go to the hospital. She says the pain is intermittent, lasting about 5-10 minutes, self resolves without any intervention , sharp stabbing starting from her left chest , radiating around her left breast and to her back. She says she has had chest pain in the past, and has attributed it to her anxiety, but this was more severe. She follows with Dr. Silas Crocker, last saw him sometime last year. She took a baby aspirin today with no relief. Patient also stated that as of November 23, she was evicted from her apartment and that it has caused a significant stress on her. Hospital course: Patient is a 61 y/o F who presented with complaint of chest pain. Initial EKG showed sinus tachycardia 109 BPM with nonspecific t wave abnormalities. cardiology was consulted. Her cardiac enzymes remained negative but echo showed normal LVEF, mild tricuspid regurg, type 1 diastolic dysfunction. She was taken for cardiac cath which showed no occlusions. She was determined medically stable for discharge by cardiology. She was advised to: follow up with your primary care physician within a week of discharge; follow up with your flag signalman within a week of discharge; resume your home medications and take as prescribed; refrain from alcohol, tobacco, or drug use; and if your condition worsens or new symptoms arise, please return to the emergency room. The patient verbalized understanding and was discharged home. This is a brief summary of the patient's stay at this facility. For more detail , see patient's full chart. - Date & Time of H&P Date of H&P: 12/07/16 Time of H&P: 16:22 Discharge Exam - Head Exam Head Exam: ATRAUMATIC, NORMOCEPHALIC - Eye Exam Eye Exam: EOMI, Normal appearance, PERRL Pupil Exam: NORMAL ACCOMODATION, PERRL - ENT Exam ENT Exam: Mucous Membranes Moist. absent: Normal Oropharynx (poor dentition) - Neck Exam Neck exam: Normal Inspection - Respiratory Exam Respiratory Exam: Chest Wall Tenderness, NORMAL BREATHING PATTERN. absent: Rales, Rhonchi, Wheezes - Cardiovascular Exam Cardiovascular Exam: REGULAR RHYTHM, +S1, +S2. absent: Gallop, Rubs, Systolic Murmur - GI/Abdominal Exam GI & Abdominal Exam: Normal Bowel Sounds, Soft. absent: Tenderness - Extremities Exam Extremities exam: normal capillary refill, normal inspection, pedal pulses present - Back Exam Back exam: NORMAL INSPECTION. absent: rash noted, tenderness - Neurological Exam Neurological exam: Alert, CN II-XII Intact, Oriented x3 - Psychiatric Exam Psychiatric exam: Normal Affect, Normal Mood - Skin Skin Exam: Dry, Intact, Normal Color, Warm Discharge Plan - Follow Up Plan Condition: FAIR Disposition: HOME/ ROUTINE Instructions: Chest Pain (DC), Left Heart Catheterization (DC), Heart Healthy Diet (DC), Hypertension (DC), Hypertension (GEN) Additional Instructions: You are medically stable for discharge. Please follow up with your primary care physician within a week of discharge. Please follow up with your flag signalman within a week of discharge. Please resume your home medications and take as prescribed. Please refrain from alcohol, tobacco, or drug use. If your condition worsens or new symptoms arise, please return to the emergency room. Referrals: Silas Crocker MD [Staff Provider] - <Jarocho Neff - Last Filed: 12/09/16 18:22> Provider - Provider Date of Admission: 12/07/16 15:58 Attending physician: Jarocho Neff, Hospital Course - Lab Results Lab Results: Most Recent Lab Values WBC 6.4 K/uL (4.8-10.8) 12/09/16 08:08 RBC 4.77 Mil/uL (3.80-5.20) 12/09/16 08:08 Hgb 12.8 g/dL (11.0-16.0) 12/09/16 08:08 Hct 40.2 % (34.0-47.0) 12/09/16 08:08 MCV 84.2 fL (81.0-99.0) 12/09/16 08:08 MCH 26.7 pg (27.0-31.0) L 12/09/16 08:08 MCHC 31.8 g/dL (33.0-37.0) L 12/09/16 08:08 RDW 14.8 % (11.5-14.5) H 12/09/16 08:08 Plt Count 124 K/uL (130-400) L 12/09/16 08:08 MPV 9.3 fL (7.2-11.7) 12/09/16 08:08 Neut % (Auto) 59.8 % (50.0-75.0) 12/09/16 08:08 Lymph % (Auto) 32.5 % (20.0-40.0) 12/09/16 08:08 Gates % (Auto) 6.4 % (0.0-10.0) 12/09/16 08:08 Eos % (Auto) 1.1 % (0.0-4.0) 12/09/16 08:08 Baso % (Auto) 0.2 % (0.0-2.0) 12/09/16 08:08 Neut # 3.8 K/uL (1.8-7.0) 12/09/16 08:08 Lymph # 2.1 K/uL (1.0-4.3) 12/09/16 08:08 Gates # 0.4 K/uL (0.0-0.8) 12/09/16 08:08 Eos # 0.1 K/uL (0.0-0.7) 12/09/16 08:08 Baso # 0.0 K/uL (0.0-0.2) 12/09/16 08:08 PT 11.1 SECONDS (9.7-12.2) 12/07/16 14:10 INR 1.0 12/07/16 14:10 APTT 24 SECONDS (21-34) 12/07/16 14:10 D-Dimer, Quantitative < 200 ng/mlDDU (0-243) 12/07/16 14:10 Sodium 140 mmol/L (132-148) 12/09/16 08:08 Potassium 4.3 mmol/L (3.6-5.2) 12/09/16 08:08 Chloride 104 mmol/L (98-107) 12/09/16 08:08 Carbon Dioxide 29 mmol/L (22-30) 12/09/16 08:08 Anion Gap 11 (10-20) 12/09/16 08:08 BUN 14 mg/dL (7-17) 12/09/16 08:08 Creatinine 0.6 MG/DL (0.7-1.2) L 12/09/16 08:08 Est GFR ( Amer) > 60 12/09/16 08:08 Est GFR (Non-Af Amer) > 60 12/09/16 08:08 POC Glucose (mg/dL) 133 mg/dL (65-110) H 12/09/16 11:09 Random Glucose 114 mg/dL (65-105) H 12/09/16 08:08 Hemoglobin A1c 6.6 % (4.2-6.5) H 12/08/16 02:46 Calcium 8.6 mg/dl (8.6-10.4) 12/09/16 08:08 Total Bilirubin 0.5 mg/dL (0.2-1.3) 12/09/16 08:08 AST 19 U/L (14-36) 12/09/16 08:08 ALT 26 U/L (9-52) 12/09/16 08:08 Alkaline Phosphatase 75 U/L (38-126) 12/09/16 08:08 Total Creatine Kinase 40 U/L (30-135) 12/08/16 02:46 CK-MB (Mass) 0.49 ng/mL (0.0-3.38) 12/08/16 02:46 Troponin I, Quant < 0.0120 ng/mL (0.00-0.120) 12/08/16 02:46 NT-Pro-B Natriuret Pep 14.3 pg/mL (0-900) 12/07/16 14:45 Total Protein 5.7 g/dL (6.3-8.3) L 12/09/16 08:08 Albumin 3.2 g/dL (3.5-5.0) L 12/09/16 08:08 Globulin 2.5 gm/dL (2.2-3.9) 12/09/16 08:08 Albumin/Globulin Ratio 1.3 (1.0-2.1) 12/09/16 08:08 Triglycerides 188 mg/dL (0-149) H 12/08/16 02:46 Cholesterol 149 mg/dL (0-199) 12/08/16 02:46 LDL Cholesterol Direct 58 mg/dL (0-129) 12/08/16 02:46 HDL Cholesterol 66 mg/dL (30-70) 12/08/16 02:46 TSH 3rd Generation 1.99 mIU/L (0.46-4.68) 12/08/16 02:46 Attending/Attestation - Attestation I have personally seen and examined this patient.: Yes I have fully participated in the care of the patient.: Yes I have reviewed all pertinent clinical information, including history, physical exam and plan: Yes Notes (Text): 12/09/16 18:20 Medical Attending: Patient was seen and examined by me. Agree with the above note by the resident. The patient completed cardiac cath yesterday afternoon and feels ok now. The patient denied chest pain, denied shortness of breath, denied abdominal pain. The patient needs to resume all previous medications as before thank you Jarocho Neff
--- NOTE | 2017-01-12 08:04 | CARD ---
APPROVED REPORT EKG Measurement Heart [id number] [place] [id number] <Conclusion> Normal sinus rhythm Moderate voltage criteria for LVH, may be normal variant Nonspecific T wave abnormality Abnormal ECG
== END 2016-12-09 12:28 | disposition home or self-care (01) ==
LOC: C.ER 12:34 → C.9E 15:58 → C.6T 16:39
PROVIDERS: ADMIT Hospitalist; ATTEND Hospitalist
DX: R07.9 Chest pain, unspecified (principal); E11.9 Type 2 diabetes mellitus without complications; I10 Essential (primary) hypertension; E78.5 Hyperlipidemia, unspecified; F41.8 Other specified anxiety disorders
CPT/HCPCS: 36415; 71010; 80053; 80061; 82948; 83036; 83880; 84443; 84484; 85025; 85378; 85610; 85730; 93005; 93306; 93458; 99285; C1769; C1887; G0378; J1644; J2250; J3010; J7040; Q9967